=== PATIENT | male | born 1950 | race Caucasian/White ===

== ENCOUNTER 2017-05-24 08:58 | Emergency (ER) | payer MEDICARE, OTHER, SELFPAY ==
[2017-05-24] MEDS: METOPROLOL TART 50 MG TAB PO (09:45)
[2017-05-24] MEDS: METOPROLOL 5 MG/5 ML VIAL IV ×3 (09:45→10:19)
[2017-05-24 09:46] LABS: BASO # 0.1 10^3/uL (0.0-0.2); BASO % 0.9 % (0.0-1.0); EOS # 0.2 10^3/uL (0.0-0.50); EOS % 2.5 % (0.0-3.0); HEMATOCRIT 44.6 % (42.0-52.0); HEMOGLOBIN 15.4 g/dl (14.0-18.0); IMMATURE GRANULOCYTE % 0.3 % (0-3.0); LYMPH # 1.1 10^3/uL (1.5-4.5); LYMPH % 16.6 % (24.0-44.0); MEAN CORPUSCULAR HEMOGLOBIN 28.7 pg (27.0-33.0); MEAN CORPUSCULAR HGB CONC 34.5 g/dl (32.0-36.5); MEAN CORPUSCULAR VOLUME 83.2 fl (80.0-96.0); MONO # 0.5 10^3/uL (0.0-0.8); MONO % 7.1 % (0.0-5.0); NEUTROPHILS # 4.9 10^3/uL (1.8-7.7); NEUTROPHILS % 72.6 % (36.0-66.0); PLATELET COUNT, AUTOMATED 299 10^3/uL (150-450); RED BLOOD COUNT 5.36 10^6/uL (4.30-6.10); RED CELL DISTRIBUTION WIDTH 13.3 % (11.5-14.5); WHITE BLOOD COUNT 6.8 10^3/uL (4.0-10.0)
[2017-05-24 10:14] LABS: INR 1.05; PROTHROMBIN TIME 13.8 SECONDS (12.4-14.5)
[2017-05-24 10:21] LABS: ALBUMIN 3.5 GM/DL (3.2-5.2); ALKALINE PHOSPHATASE 118 U/L (45-117); ALT/SGPT 25 U/L (12-78); ANION GAP 9 MEQ/L (8-16); AST/SGOT 12 U/L (7-37); BILIRUBIN,DIRECT 0.2 MG/DL (0.0-0.2); BILIRUBIN,TOTAL 0.5 MG/DL (0.2-1.0); BLOOD UREA NITROGEN 22 MG/DL (7-18); CALCIUM LEVEL 8.6 MG/DL (8.8-10.2); CARBON DIOXIDE LEVEL 26 MEQ/L (21-32); CHLORIDE LEVEL 100 MEQ/L (98-107); CPK CREATINE PHOSPHOKINASE 55 U/L (39-308); CREATININE FOR GFR 1.15 MG/DL (0.70-1.30); GLOMERULAR FILTRATION RATE > 60.0 (>49); LIPASE 469 U/L (73-393); POTASSIUM SERUM 4.6 MEQ/L (3.5-5.1); SODIUM LEVEL 135 MEQ/L (136-145); TOTAL PROTEIN 7.4 GM/DL (6.4-8.2); TROPONIN I 0.02 NG/ML (< 0.10)
[2017-05-24 10:22] LABS: NT-PRO BNP 3088 PG/ML (<125)
[2017-05-24 10:27] LABS: CK-MB VALUE MASS 1.4 NG/ML (<3.6); MB/CK RELATIVE INDEX 2.54 (< OR =4)
[2017-05-24 10:30] LABS: GLUCOSE, FASTING 478 MG/DL (70-100)
[2017-05-24] MEDS: HumuLIN R (REGULAR) INSULIN (NovoLIN R) **100U/ML** PER UNIT IV (11:14)
[2017-05-24] MEDS: APIXABAN 5 MG TAB (ELIQUIS) PO (12:00)
[2017-05-24 13:09] LABS: BEDSIDE GLUCOSE 368 MG/DL (80-115)
[2017-05-24 15:33] LABS: CPK CREATINE PHOSPHOKINASE 48 U/L (39-308); TROPONIN I 0.02 NG/ML (< 0.10)
[2017-05-24 15:34] LABS: CK-MB VALUE MASS 1.1 NG/ML (<3.6); MB/CK RELATIVE INDEX 2.29 (< OR =4)
== END 2017-05-24 15:55 | disposition home or self-care (01) ==
LOC: M ED 08:58
DX: I48.91 Unspecified atrial fibrillation (principal); I11.9 Hypertensive heart disease without heart failure; E11.9 Type 2 diabetes mellitus without complications; F17.200 Nicotine dependence, unspecified, uncomplicated; Z79.899 Other long term (current) drug therapy
CPT/HCPCS: 71045

== ENCOUNTER → 2017-06-15 | Outpatient (REF) | payer MEDICARE ==
[2017-06-15 13:25] LABS: CHOLESTEROL LEVEL 206 MG/DL (<200); CHOLESTEROL RISK RATIO 4.904 (<5); HDL CHOLESTEROL 42 MG/DL (>40); LDL CHOLESTEROL 121.2 MG/DL (<100); NON-HDL-C 164 MG/DL; TRIGLYCERIDES LEVEL 214 MG/DL (<150)
== END ==
LOC: M LAB REF 12:12
DX: Z68.41 Body mass index [BMI] 40.0-44.9, adult (principal)
CPT/HCPCS: 80061

== ENCOUNTER → 2017-08-23 | Outpatient (REF) | payer MEDICARE ==
[2017-08-23 19:59] LABS: HEMATOCRIT 40.9 % (42.0-52.0); HEMOGLOBIN 13.7 g/dl (13.5-17.5); MEAN CORPUSCULAR HEMOGLOBIN 29.4 pg (27.0-33.0); MEAN CORPUSCULAR HGB CONC 33.5 g/dl (32.0-36.5); MEAN CORPUSCULAR VOLUME 87.8 fl (80.0-96.0); PLATELET COUNT, AUTOMATED 216 10^3/uL (150-450); RED BLOOD COUNT 4.66 10^6/uL (4.30-6.10); RED CELL DISTRIBUTION WIDTH 14.4 % (11.5-14.5); WHITE BLOOD COUNT 5.8 10^3/uL (4.0-10.0)
== END ==
LOC: M LAB REF 19:09
DX: I48.2 Chronic atrial fibrillation (principal)
CPT/HCPCS: 85027

== ENCOUNTER → 2020-10-29 | Outpatient (REF) | payer MEDICARE ==
[~2020-10-29] MED LIST: BAYE325T12 PO; ELIQ5TAB PO; LISI40TA4 PO; METO50TA7 PO
== END ==
LOC: M LAB REF 10:08
PROVIDERS: ATTEND Internal Medicine
DX: R07.9 Chest pain, unspecified (principal)

== ENCOUNTER → 2023-08-19 | Outpatient (CLI) | payer MEDICARE | LOC: M RAD 07:28 | PROVIDERS: ATTEND Internal Medicine | DX: F17.210 Nicotine dependence, cigarettes, uncomplicated (principal) ==

== ENCOUNTER 2024-10-05 16:15 | Inpatient (IN) | payer MEDICARE ==
[~2024-10-05 16:15] MED LIST changes: -BAYE325T12 PO; +BAYE325T2 PO; +LISI40TA10 PO; -LISI40TA4 PO
[2024-10-05] MEDS ORDERED: LOSA100T5 PO (17:11)
[2024-10-05] MEDS ORDERED: SEMA0.257 SC (17:11)
[2024-10-05] MEDS ORDERED: METF10004 PO (17:16)
[2024-10-05] MEDS ORDERED: CARV25TA PO (17:16)
[2024-10-05] MEDS ORDERED: GLIM4TAB5 PO (17:16)
[2024-10-05] MEDS ORDERED: AMLO1TAB25 PO (17:16)
[2024-10-05] MEDS ORDERED: ASPI325T57 PO (17:16)
[2024-10-05] MEDS ORDERED: FARX1TAB3 PO (17:16)
[2024-10-05] MEDS ORDERED: ROSU20TA86 PO (17:16)
[2024-10-05] MEDS ORDERED: OMEP-173 PO (17:16)
[2024-10-05] MEDS ORDERED: HOME MED LIST COMPLETE! XX SCH (17:20)
[2024-10-05 17:54] LABS: BASO # 0.1 10^3/uL (0.0-0.2); BASO % 0.9 % (0.0-1.0); EOS # 0.2 10^3/uL (0.0-0.5); EOS % 1.9 % (0.0-3.0); LYMPH # 1.1 10^3/uL (1.5-5.0); LYMPH % 13.8 % (24.0-44.0); MONO # 0.8 10^3/uL (0.0-0.8); MONO % 9.7 % (2.0-8.0); NEUTROPHILS # 5.7 10^3/uL (1.5-8.5); NEUTROPHILS % 73.3 % (36.0-66.0); PLATELET COUNT, AUTOMATED 246 10^3/uL (150-450)
[2024-10-05 18:22] LABS: CK-MB VALUE MASS 2.2 NG/ML (<3.6)
[2024-10-05 18:25] LABS: CALCIUM LEVEL 9.4 MG/DL (8.3-10.6); CARBON DIOXIDE LEVEL 27.0 MMOL/L (20-31); CHLORIDE LEVEL 105.0 MMOL/L (98-107); CREATININE FOR GFR 1.13 MG/DL (0.70-1.30); GLOMERULAR FILTRATION RATE 69.1 (>42); MAGNESIUM LEVEL 2.1 MG/DL (1.8-2.4); POTASSIUM SERUM 4.3 MMOL/L (3.5-5.1); SODIUM LEVEL 146.0 MMOL/L (136-145)
[2024-10-05 18:28] LABS: CPK CREATINE PHOSPHOKINASE 85.0 U/L (46-171); MB/CK RELATIVE INDEX 2.58 (< OR =4)
[2024-10-05] MEDS: TETANUS/DIPHTH/ACEL. PERTUSSIS 0.5 ML SYR IM ONE (18:33)
[2024-10-05] MEDS: NS 500 ML IV ONE (18:48)
[2024-10-05 19:22] LABS: CK-MB VALUE MASS 2.3 NG/ML (<3.6)
[2024-10-05 19:28] LABS: CPK CREATINE PHOSPHOKINASE 84.0 U/L (46-171); MB/CK RELATIVE INDEX 2.73 (< OR =4)
[2024-10-05] MEDS ORDERED: MOM 30 ML SUSPENSION UDC PO PRN (20:30)
[2024-10-05] MEDS ORDERED: ACETAMINOPHEN 325 MG TAB PO PRN (20:30)
[2024-10-05] MEDS ORDERED: DEXTROSE 50% 50 ML SYRINGE IV PRN (20:30)
[2024-10-05] MEDS ORDERED: MAALOX 30 ML SUSP *UDC PO PRN (20:30)
[2024-10-05] MEDS ORDERED: GLUCOSE 4 GM CHEW PO PRN (20:30)
[2024-10-05] MEDS ORDERED: GLUCAGON INJ 1 MG VIAL SC PRN (20:30)
[2024-10-05 22:17] VITALS: BP 143/95; TEMP 97.1; O2SAT 97
[2024-10-05] MEDS: ASPIRIN 325 MG TAB PO SCH (22:47)
[2024-10-05] MEDS: DOCUSATE SODIUM 100 MG CAPSULE PO SCH (22:47)
[2024-10-06] VITALS (9 sets, daily range): BP systolic 7–143; BP diastolic 74–95; TEMP 97.1–98; O2SAT 93–98
[2024-10-06 05:52] LABS: PLATELET COUNT, AUTOMATED 220 10^3/uL (150-450)
[2024-10-06 06:19] LABS: ALT/SGPT 25.0 U/L (7.0-40); AST/SGOT 17.0 U/L (<34); CALCIUM LEVEL 9.1 MG/DL (8.3-10.6); CARBON DIOXIDE LEVEL 27.0 MMOL/L (20-31); CHLORIDE LEVEL 105.0 MMOL/L (98-107); CREATININE FOR GFR 1.05 MG/DL (0.70-1.30); GLOMERULAR FILTRATION RATE 75.4 (>42); MAGNESIUM LEVEL 2.2 MG/DL (1.8-2.4); POTASSIUM SERUM 3.6 MMOL/L (3.5-5.1); SODIUM LEVEL 145.0 MMOL/L (136-145)
[2024-10-06] MEDS: INSULIN LISPRO (NovoLOG) PER UNIT SC SCH (07:30)
[2024-10-06] MEDS: ROSUVASTATIN 10 MG TAB PO SCH (09:37)
[2024-10-06] MEDS: HEPARIN SOD 5000 UNITS/ML 1 ML VIAL/SYRINGE SC SCH (09:37)
[2024-10-06] MEDS: ASPIRIN 81 MG CHEWABLE TABLET PO SCH (09:37)
[2024-10-06] MEDS: DAPAGLIFLOZIN PROPANEDIOL 10 MG TABLET PO SCH (09:37)
[2024-10-06] MEDS: PANTOPRAZOLE 40MG VIAL IV SCH (09:38)
[2024-10-06] MEDS ORDERED: MUPIROCIN 2% OINT 22 GM TUBE TOP SCH (16:00)
== END 2024-10-06 15:08 | disposition home or self-care (01) | DRG 605 ==
LOC: M ED 16:15 → M ED INP 20:28 → M PCU 22:16
PROVIDERS: ADMIT Student in an Organized Health Care Education/Training Program; ATTEND Student in an Organized Health Care Education/Training Program
PROC: B246ZZZ Ultrasonography of Right and Left Heart (ICD-10-PCS; principal; 2024-10-06)
DX: S01.01XA Laceration without foreign body of scalp, initial encounter (principal); I50.32 Chronic diastolic (congestive) heart failure; I48.0 Paroxysmal atrial fibrillation; I11.0 Hypertensive heart disease with heart failure; E78.5 Hyperlipidemia, unspecified; R55 Syncope and collapse; E11.9 Type 2 diabetes mellitus without complications; F17.200 Nicotine dependence, unspecified, uncomplicated; Z79.82 Long term (current) use of aspirin; Z79.84 Long term (current) use of oral hypoglycemic drugs; Z79.899 Other long term (current) drug therapy; E86.0 Dehydration; W19.XXXA Unspecified fall, initial encounter; Y92.9 Unspecified place or not applicable

== ENCOUNTER → 2024-11-02 | Outpatient (REF) | payer MEDICARE ==
[~2024-11-02] MED LIST changes: +AMLO1TAB25 PO; +ASPI325T57 PO; +CARV25TA PO; +FARX1TAB3 PO; +GLIM4TAB5 PO; +LOSA100T5 PO; +METF10004 PO; +OMEP-173 PO; +ROSU20TA86 PO; +SEMA0.257 SC
[2024-11-02 13:05] LABS: CK-MB VALUE MASS 2.2 NG/ML (<3.6)
[2024-11-02 13:11] LABS: CPK CREATINE PHOSPHOKINASE 52.0 U/L (46-171); MB/CK RELATIVE INDEX 4.23 (< OR =4)
== END ==
LOC: M LAB REF 12:21
PROVIDERS: ATTEND Internal Medicine
DX: I50.32 Chronic diastolic (congestive) heart failure (principal)

== ENCOUNTER → 2024-11-16 | Outpatient (REF) | payer MEDICARE | LOC: M LAB REF 14:29 | PROVIDERS: ATTEND Internal Medicine | DX: I50.32 Chronic diastolic (congestive) heart failure (principal) ==

== ENCOUNTER → 2024-12-28 | Outpatient (CLI) | payer MEDICARE | LOC: M EKG 09:11 | PROVIDERS: ATTEND Physician Assistant | DX: I48.21 Permanent atrial fibrillation (principal) ==

== ENCOUNTER → 2025-02-19 | Outpatient (REF) | payer MEDICARE | LOC: M LAB REF 12:04 | PROVIDERS: ATTEND Internal Medicine | DX: I50.42 Chronic combined systolic (congestive) and diastolic (congestive) heart failure (principal) ==